=== PATIENT | male | born 1995 | race American Indian/Alaskan Native ===

== ENCOUNTER 2019-05-06 16:15 | Emergency (ER) | payer SELFPAY ==
--- NOTE | 2019-05-06 16:26 | Event Note ---
ED Screening Note Date of service: 05/06/19 (n) Time: 16:25 ED Screening Note: 24 year old male presents to ED cc of coughing, nausea, vomitting, diarhea, chest tightness and body aches not resolved with mmeds x 3- 4 weeks This initial assessment/diagnostic orders/clinical plan/treatment(s) is/are subject to change based on patients health status, clinical progression and re- assessment by fellow clinical providers in the ED. Further treatment and workup at subsequent clinical providers discretion. Patient/guardian urged not to elope from the ED as their condition may be serious if not clinically assessed and managed. Initial orders include: cxr
[2019-05-06 16:28] VITALS: BP 100/52
--- NOTE | 2019-05-06 16:46 | Emergency Department Report ---
Minor Respiratory - HPI Chief Complaint: Abdominal Pain Stated Complaint: FLU SX Time Seen by Provider: 05/06/19 16:44 Duration: 5 Days Pain Location: Chest Severity: mild Minor Respiratory: Yes Able to Tolerate Fluids, Yes Cough, No Rhinorrhea, No Sore Throat, No Ear Pain, No Sick Contacts, No Hemoptysis, No Chest Pain, No Shortness of Breath, No Fever Other History: 24 YO COMES TO ER WITH SEVERAL WEEK HX COUGH. CONCERNED FOR PNA. NO FEVER. NO CHILLS. NO PMH.NON ILL NON TOXIC ON EXAM. ED Review of Systems ROS: Stated complaint: FLU SX Other details as noted in HPI Comment: All other systems reviewed and negative ED Past Medical Hx - Past Medical History Previous Medical History?: No - Surgical History Past Surgical History?: No Additional Surgical History: R hand/ knee surgery - Family History Family history: no significant - Social History Smoking Status: Current Some Day Smoker Substance Use Type: Alcohol, Marijuana Minor Respiratory Exam - Exam General: Vital signs noted. No distress. Alert and acting appropriately. HEENT: Yes Moist Mucous Membranes, No Pharyngeal Erythema, No Pharyngeal Exudates, No Rhinorrhea, No Conjuctival Injection, No Frontal Tenderness, No Maxillary Tenderness Ear: Neither TM Bulge, Neither TM Erythema, Neither EAC Pain, Neither EAC Discharge Neck: Yes Supple, No Adenopathy Lungs: Yes Good Air Exchange, No Wheezes, No Ronchi, No Stridor, No Cough, No Labored Respirations, No Retractions, No Use of Accessory Muscles, No Other Abn ormal Lung Sounds Heart: Yes Regular, No Murmur Abdomen: Yes Normal Bowel Sounds, No Tenderness, No Peritoneal Signs Skin: No Rash, No Edema Neurologic: Alert and oriented, no deficits. Musculoskeletal: Unremarkable. ED Course Vital Signs 05/06/19 16:25 Temperature 98.8 F Pulse Rate 76 Respiratory 18 Rate Blood Pressure 100/52 O2 Sat by Pulse 97 Oximetry ED Medical Decision Making - Radiology Data Radiology results: report reviewed, image reviewed - Medical Decision Making xr neg as ordered by AVELINO in triage no fever or chills eating skittles candy on my exam VSS and normal ambulatory and non ill appearing symptoms for over 3 weeks dc home to pcp Vital Signs 05/06/19 16:25 Temperature 98.8 F Pulse Rate 76 Respiratory 18 Rate Blood Pressure 100/52 O2 Sat by Pulse 97 Oximetry - Differential Diagnosis viral illness Critical care attestation.: If time is entered above; I have spent that time in minutes in the direct care of this critically ill patient, excluding procedure time. ED Disposition Clinical Impression: Cough Disposition: DC-01 TO HOME OR SELFCARE Is pt being admited?: No Does the pt Need Aspirin: No Condition: Stable Instructions: Cold Symptoms (ED) Additional Instructions: stay well hydrated motrin or tylenol for fever over the counter delsym for cough activity as tolerated follow up with pcp if persists Referrals: RAYMOND SHAHID MD [Staff Physician] - 3-5 Days Time of Disposition: 16:45
--- NOTE | 2019-05-06 17:17 | XRay Report ---
CHEST PA AND LATERAL VIEWS INDICATION: couggh, fever, [place]. COMPARISON: None. FINDINGS: Support devices: None. Heart: Within normal limits. Lungs/Pleura: No acute pulmonary or pleural findings. IMPRESSION: 1. No significant abnormality. Signer Name: Satish Oropeza MD Signed: 05/06/2019 5:13 PM Workstation Name: [id number]
== END 2019-05-06 17:47 | disposition home or self-care (01) ==
LOC: ED 16:15
DX: R05 Cough (principal)
CPT/HCPCS: 71046